=== PATIENT | male | born 1950 | race Caucasian/White ===

== ENCOUNTER 2017-08-06 05:04 | Emergency (ER) | payer MEDICARE ==
[2017-08-06 05:16] VITALS: BP 144/80
[2017-08-06] MEDS ORDERED: BOOSTRIX IM ONE (07:45)
--- NOTE | 2017-08-06 07:47 | Emergency Department Report ---
ED Animal Bite HPI - General Chief Complaint: Animal Bite Stated Complaint: DOG BITE Time Seen by Provider: 08/06/17 07:43 Source: patient Mode of arrival: Ambulatory Limitations: No Limitations - History of Present Illness Initial Comments: Pt was bitten by one of his own dogs while they were fighting, but unsure which one. States one is a puppy and has not had rabies shot yet and the other one has. States not concerned and declines rabies prophylaxis and that dog can be observed. Complaint: animal bite -: Sudden, hour(s) (6) Location: other (L hand) Left: Hand Animal: dog Animal Control Notified: Yes Description: household pet, appeared well Mechanism: bite Pain Description: sharp Context: animals fighting Associated Symptoms: none Treatments Prior to Arrival: wound dressing(s) - Related Data Patient Tetanus UTD: No Previous Rx's Medication Instructions Recorded Last Taken Type Amoxicillin [Amoxicillin TAB] 875 mg PO BID #20 tablet 05/12/15 Unknown Rx Ofloxacin 0.3% [Floxin Otic] 10 ml OT TID #1 bottle 05/12/15 Unknown Rx Amoxicillin/Potassium Clav 1 each PO BID #20 tablet 08/06/17 Unknown Rx [Augmentin 875-125 Tablet] Allergies Allergy/AdvReac Type Severity Reaction Status Date / Time No Known Allergies Allergy Unverified 05/12/15 13:47 ED Review of Systems ROS: Stated complaint: DOG BITE Other details as noted in HPI Comment: All other systems reviewed and negative Constitutional: denies: chills, fever Eyes: denies: eye pain, eye discharge, vision change ENT: denies: ear pain, throat pain Respiratory: denies: cough, shortness of breath, wheezing Cardiovascular: denies: chest pain, palpitations Endocrine: no symptoms reported Gastrointestinal: denies: abdominal pain, nausea, diarrhea Genitourinary: denies: urgency, dysuria Musculoskeletal: denies: back pain, joint swelling, arthralgia Skin: denies: rash, lesions Neurological: denies: headache, weakness, paresthesias Psychiatric: denies: anxiety, depression Hematological/Lymphatic: denies: easy bleeding, easy bruising ED Past Medical Hx - Past Medical History Previous Medical History?: Yes Hx Hypertension: Yes Hx CVA: No Hx Heart Attack/AMI: No Hx Diabetes: No Hx Deep Vein Thrombosis: No Hx Liver Disease: No Hx Renal Disease: No Hx Kidney Stones: No Hx Asthma: Yes - Surgical History Hx Appendectomy: Yes Additional Surgical History: RIGHT ANKLE - Social History Smoking Status: Former Smoker - Medications Home Medications: Home Medications Medication Instructions Recorded Confirmed Last Taken Type Amoxicillin [Amoxicillin TAB] 875 mg PO BID #20 tablet 05/12/15 Unknown Rx Ofloxacin 0.3% [Floxin Otic] 10 ml OT TID #1 bottle 05/12/15 Unknown Rx Amoxicillin/Potassium Clav 1 each PO BID #20 tablet 08/06/17 Unknown Rx [Augmentin 875-125 Tablet] ED Physical Exam - General Limitations: No Limitations General appearance: alert, in no apparent distress - Head Head exam: Present: atraumatic, normocephalic - Eye Eye exam: Present: normal appearance - ENT ENT exam: Present: mucous membranes moist - Neck Neck exam: Present: normal inspection - Respiratory Respiratory exam: Present: normal lung sounds bilaterally. Absent: respiratory distress - Cardiovascular Cardiovascular Exam: Present: regular rate, normal rhythm. Absent: systolic murmur, diastolic murmur, rubs, gallop - GI/Abdominal GI/Abdominal exam: Present: soft, normal bowel sounds - Rectal Rectal exam: Present: deferred - Extremities Exam Extremities exam: Present: normal inspection - Back Exam Back exam: Present: normal inspection - Neurological Exam Neurological exam: Present: alert, oriented X3 - Psychiatric Psychiatric exam: Present: normal affect, normal mood - Skin Skin exam: Present: warm, dry, intact, normal color, other (small puncture wound to proximal L palm. CMS intact. ). Absent: rash ED Course Vital Signs 08/06/17 08/06/17 05:14 05:58 Temperature 97.6 F 97.6 F Pulse Rate 61 60 Respiratory 18 18 Rate Blood Pressure 144/80 144/80 O2 Sat by Pulse 98 98 Oximetry - Reevaluation(s) Reevaluation #1: 08/06/17 07:46 Animal will be observed. Tetanus updated, RX for Augmentin given. Follow with PCP. Pt is in NAD and stable for d/c. 08/06/17 07:46 Critical care attestation.: If time is entered above; I have spent that time in minutes in the direct care of this critically ill patient, excluding procedure time. ED Disposition Clinical Impression: Dog bite Qualifiers: Encounter type: initial encounter Qualified Code(s): W54.0XXA - Bitten by dog, initial encounter Disposition: TO HOME OR SELFCARE Is pt being admited?: No Condition: Good Instructions: Animal Bite (ED) Prescriptions: Amoxicillin/Potassium Clav [Augmentin 875-125 Tablet] 1 each PO BID #20 tablet Referrals: PRIMARY CARE, [Primary Care Provider] - 3-5 Days Time of Disposition: 07:47
== END 2017-08-06 08:20 | disposition home or self-care (01) ==
LOC: ED 05:04
DX: S61.452A Open bite of left hand, initial encounter (principal); I10 Essential (primary) hypertension; Z87.891 Personal history of nicotine dependence; W54.0XXA Bitten by dog, initial encounter; Y93.89 Activity, other specified; Y92.89 Other specified places as the place of occurrence of the external cause; Y99.8 Other external cause status
CPT/HCPCS: 90471; 90715; 99282

== ENCOUNTER 2017-10-24 15:51 | Emergency (ER) | payer MEDICARE ==
[2017-10-24] MEDS ORDERED: AUGMENTIN 875 MG PO ONE (19:54)
[2017-10-24] MEDS ORDERED: TYLENOL PO ONE (19:54)
[2017-10-24] MEDS ORDERED: TRIPLE ANTIBIOTIC TP ONE (20:03)
--- NOTE | 2017-10-24 20:03 | Emergency Department Report ---
ED Animal Bite HPI - General Chief Complaint: Animal Bite Stated Complaint: ANIMAL BITE Time Seen by Provider: 10/24/17 19:53 Source: patient Mode of arrival: Ambulatory Limitations: No Limitations - History of Present Illness Initial Comments: 67-year-old male past medical history none presents with complaint of dog bite to right anterior lateral forearm. Patient states that he has 2 dogs at home that he owns and while playing with them they began to fight he dogs and one of the dogs bit him on right forearm. Patient has 2 small abrasions with one central puncture wound less than 1 cm in size with small scab no active bleeding. States that this occurred this afternoon. Patient states that he was not injured in any other body part. Patient is awake alert and oriented 3 fully lucid nonacute distress. States that he rinsed wound with soap and water immediately after incident. Patient states that he has evidence of dogs have all their vaccinations including vaccinations against rabies and the dogs have veterinary care. Patient states he received a tetanus update 2 months ago. MD Complaint: animal bite -: This afternoon Right: Forearm Animal: dog Animal Control Notified: No Description: household pet Mechanism: bite Severity scale (0 -10): 1 Context: animals fighting Associated Symptoms: none - Related Data Patient Tetanus UTD: Yes Previous Rx's Medication Instructions Recorded Last Taken Type Amoxicillin [Amoxicillin TAB] 875 mg PO BID #20 tablet 05/12/15 Unknown Rx Ofloxacin 0.3% [Floxin Otic] 10 ml OT TID #1 bottle 05/12/15 Unknown Rx Amoxicillin/Potassium Clav 1 each PO BID #20 tablet 08/06/17 Unknown Rx [Augmentin 875-125 Tablet] Acetaminophen [Acetaminophen TAB] 500 mg PO Q6HR PRN #30 tablet 10/24/17 Unknown Rx Amoxicillin/K Clav Tab [Augmentin 1 tab PO Q12HR #20 tab 10/24/17 Unknown Rx 875 mg] Bacitracin Zinc Oint [Antibiotic 1 applicatio TP BID #1 tube 10/24/17 Unknown Rx Oint] Allergies Allergy/AdvReac Type Severity Reaction Status Date / Time No Known Allergies Allergy Unverified 05/12/15 13:47 ED Review of Systems ROS: Stated complaint: ANIMAL BITE Other details as noted in HPI Constitutional: denies: chills, fever Eyes: denies: eye pain, eye discharge, vision change ENT: denies: ear pain, throat pain Respiratory: denies: cough, shortness of breath, wheezing Cardiovascular: denies: chest pain, palpitations Endocrine: no symptoms reported Gastrointestinal: denies: abdominal pain, nausea, diarrhea Genitourinary: denies: urgency, dysuria Musculoskeletal: denies: back pain, joint swelling, arthralgia Skin: denies: rash, lesions Neurological: denies: headache, weakness, paresthesias Psychiatric: denies: anxiety, depression Hematological/Lymphatic: denies: easy bleeding, easy bruising ED Past Medical Hx - Past Medical History Hx Hypertension: Yes Hx CVA: No Hx Heart Attack/AMI: No Hx Diabetes: No Hx Deep Vein Thrombosis: No Hx Liver Disease: No Hx Renal Disease: No Hx Kidney Stones: No Hx Asthma: Yes - Surgical History Hx Appendectomy: Yes Additional Surgical History: RIGHT ANKLE - Social History Smoking Status: Never Smoker Substance Use Type: None - Medications Home Medications: Home Medications Medication Instructions Recorded Confirmed Last Taken Type Amoxicillin [Amoxicillin TAB] 875 mg PO BID #20 tablet 05/12/15 Unknown Rx Ofloxacin 0.3% [Floxin Otic] 10 ml OT TID #1 bottle 05/12/15 Unknown Rx Amoxicillin/Potassium Clav 1 each PO BID #20 tablet 08/06/17 Unknown Rx [Augmentin 875-125 Tablet] Acetaminophen [Acetaminophen TAB] 500 mg PO Q6HR PRN #30 tablet 10/24/17 Unknown Rx Amoxicillin/K Clav Tab [Augmentin 1 tab PO Q12HR #20 tab 10/24/17 Unknown Rx 875 mg] Bacitracin Zinc Oint [Antibiotic 1 applicatio TP BID #1 tube 10/24/17 Unknown Rx Oint] ED Physical Exam - General Limitations: No Limitations General appearance: alert, in no apparent distress - Head Head exam: Present: atraumatic, normocephalic - Eye Eye exam: Present: normal appearance, PERRL, EOMI - ENT ENT exam: Present: mucous membranes moist - Neck Neck exam: Present: normal inspection, full ROM - Respiratory Respiratory exam: Present: normal lung sounds bilaterally. Absent: respiratory distress - Cardiovascular Cardiovascular Exam: Present: regular rate, normal rhythm. Absent: systolic murmur, diastolic murmur, rubs, gallop - GI/Abdominal GI/Abdominal exam: Present: soft, normal bowel sounds - Rectal Rectal exam: Present: deferred - Extremities Exam Extremities exam: Present: normal inspection - Expanded Upper Extremity Exam Right General: Present: other Shoulder Exam: Present: normal inspection, full ROM Upper Arm exam: Present: normal inspection, full ROM Elbow exam: Present: normal inspection, full ROM Forearm Wrist exam: Present: tenderness, abrasion, other (puncture wound) Hand Wrist exam: Present: normal inspection, full ROM Neuro motor exam: Present: wrist extension intact, thumb opposition intact, thumb IP flexion intact, thumb adduction intact, fingers 2-5 abduction intact Vascular: Present: normal capillary refill - Back Exam Back exam: Present: normal inspection - Neurological Exam Neurological exam: Present: alert, oriented X3, CN II-XII intact, normal gait - Psychiatric Psychiatric exam: Present: normal affect, normal mood - Skin Skin exam: Present: warm, dry, intact, normal color. Absent: rash ED Course Vital Signs 10/24/17 10/24/17 16:18 16:23 Temperature 97.8 F 97.8 F Pulse Rate 62 62 Respiratory 16 16 Rate Blood Pressure 144/83 Blood Pressure 144/83 [Right] O2 Sat by Pulse 98 98 Oximetry Critical care attestation.: If time is entered above; I have spent that time in minutes in the direct care of this critically ill patient, excluding procedure time. Critical Care Time: A/P: Dog bite to right forearm 1-Augmentin 875 twice a day for 10 days and Tylenol when necessary, topical bacitracin 2-2 less than 0.5cm abrasions, less than 1cm small puncture wound and no active bleeding no indication for closure at this time and less than 1 cm in size and depth. Has external skin no exposed tissue. No indication for rabies prophylaxis at this time. He states he has documentation that his pet has all of its vaccinations. Distal pulses and range of motion right upper extremity fully intact on clinical exam. No abscess no overt signs of cellulitis. 3-patient had his tetanus updated 2 months ago via primary care doctor 4-I advised patient to return to the ED for any pus drainage from wound or erythema at site. Patient has no clinical signs of infection at this time ED Disposition Clinical Impression: Abrasion Animal bite of right forearm Qualifiers: Encounter type: initial encounter Qualified Code(s): S51.851A - Open bite of right forearm, initial encounter Disposition: DC-01 TO HOME OR SELFCARE Is pt being admited?: No Does the pt Need Aspirin: No Condition: Stable Instructions: Animal Bite (ED), Acute Wound Care (ED), Abrasion (ED) Prescriptions: Acetaminophen [Acetaminophen TAB] 500 mg PO Q6HR PRN #30 tablet PRN Reason: Pain , Severe (7-10) Amoxicillin/K Clav Tab [Augmentin 875 mg] 1 tab PO Q12HR #20 tab Bacitracin Zinc Oint [Antibiotic Oint] 1 applicatio TP BID #1 tube Referrals: [facility] [Outside] - 3-5 Days [facility] [Outside] - 3-5 Days Time of Disposition: 20:07
[2017-10-24 21:45] VITALS: BP 119/56
== END 2017-10-24 20:30 | disposition home or self-care (01) ==
LOC: ED 15:51
DX: S51.851A Open bite of right forearm, initial encounter (principal); I10 Essential (primary) hypertension; J45.909 Unspecified asthma, uncomplicated; Z90.49 Acquired absence of other specified parts of digestive tract; W54.0XXA Bitten by dog, initial encounter; Y93.89 Activity, other specified; Y99.8 Other external cause status; Y92.009 Unspecified place in unspecified non-institutional (private) residence as the place of occurrence of the external cause
CPT/HCPCS: 99282; A6250

== ENCOUNTER 2018-12-19 14:46 | Inpatient (IN) | payer MEDICARE ==
[2018-12-19] MEDS ORDERED: NACL 0.9% 1000 ML 1,000 ML ONE (15:28)
[2018-12-19 15:41] LABS: Basophils % (Auto) 0.4 % (0.0-1.8); Eosinophils % (Auto) 0.1 % (0.0-4.3); Hemoglobin 13.3 gm/dl (11.8-15.2); Lymphocytes # (Auto) 0.7 K/mm3 (1.2-5.4); Lymphocytes % (Auto) 6.3 % (13.4-35.0); Mean Corpuscular HGB Conc 32 % (32-34); Mean Corpuscular Volume 78 fl (84-94); Monocytes # (Auto) 0.6 K/mm3 (0.0-0.8); Monocytes % (Auto) 5.3 % (0.0-7.3); Platelet Count 266 K/mm3 (140-440); Red Blood Count 5.38 M/mm3 (3.65-5.03)
[2018-12-19] MEDS ORDERED: TYLENOL PO ONE (15:45)
[2018-12-19] MEDS ORDERED: TORADOL IV ONE (15:45)
[2018-12-19] MEDS ORDERED: ZOFRAN IV ONE (15:46)
--- NOTE | 2018-12-19 15:50 | Emergency Department Report ---
ED General Adult HPI - General Chief complaint: Fever Stated complaint: FEVER/VOMITING/SOB Time Seen by Provider: 12/19/18 15:02 Source: patient, family Mode of arrival: Ambulatory Limitations: Language Barrier - History of Present Illness Initial comments: 68-year-old male with a past medical history of asthma, colon cancer (finished chemotherapy in October 2018), hypertension, previous appendectomy, and pacemaker placement presents to the hospital complaining of fever and chills that started 2 hours prior to arrival. Patient does complain of frontal headache. Patient states he did receive his flu shot. He denies cough, chest pain, shortness of breath, abdominal pain, dysuria, or sore throat. He does complain of some nausea without vomiting. 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 Severity scale (0 -10): 0 - Related Data Previous Rx's Medication Instructions Recorded Last Taken Type Amoxicillin [Amoxicillin TAB] 875 mg PO BID #20 tablet 05/12/15 Unknown Rx Ofloxacin 0.3% [Floxin Otic] 10 ml OT TID #1 bottle 05/12/15 Unknown Rx Amoxicillin/Potassium Clav 1 each PO BID #20 tablet 08/06/17 Unknown Rx [Augmentin 875-125 Tablet] Acetaminophen [Acetaminophen TAB] 500 mg PO Q6HR PRN #30 tablet 10/24/17 Unknown Rx Amoxicillin/K Clav Tab [Augmentin 1 tab PO Q12HR #20 tab 10/24/17 Unknown Rx 875 mg] Bacitracin Zinc Oint [Antibiotic 1 applicatio TP BID #1 tube 10/24/17 Unknown Rx Oint] Allergies Allergy/AdvReac Type Severity Reaction Status Date / Time No Known Allergies Allergy Verified 12/19/18 14:48 ED Review of Systems ROS: Stated complaint: FEVER/VOMITING/SOB Other details as noted in HPI Comment: All other systems reviewed and negative ED Past Medical Hx - Past Medical History Hx Hypertension: Yes Hx CVA: No Hx Heart Attack/AMI: No Hx Diabetes: No Hx Deep Vein Thrombosis: No Hx Liver Disease: No Hx Renal Disease: No Hx of Cancer: Yes Hx Kidney Stones: No Hx Asthma: Yes Additional medical history: FINISHED CHEMO IN OCT - Surgical History Hx Appendectomy: Yes Additional Surgical History: RIGHT ANKLE - Social History Smoking Status: Never Smoker - Medications Home Medications: Home Medications Medication Instructions Recorded Confirmed Last Taken Type Amoxicillin [Amoxicillin TAB] 875 mg PO BID #20 tablet 05/12/15 Unknown Rx Ofloxacin 0.3% [Floxin Otic] 10 ml OT TID #1 bottle 05/12/15 Unknown Rx Amoxicillin/Potassium Clav 1 each PO BID #20 tablet 08/06/17 Unknown Rx [Augmentin 875-125 Tablet] Acetaminophen [Acetaminophen TAB] 500 mg PO Q6HR PRN #30 tablet 10/24/17 Unknown Rx Amoxicillin/K Clav Tab [Augmentin 1 tab PO Q12HR #20 tab 10/24/17 Unknown Rx 875 mg] Bacitracin Zinc Oint [Antibiotic 1 applicatio TP BID #1 tube 10/24/17 Unknown Rx Oint] ED Physical Exam - General Limitations: Language Barrier - Other Other exam information: General: No limitations, patient is alert in no acute distress Head exam: Atraumatic, normocephalic Eyes exam: Normal appearance, pupils equal reactive to light, extraocular movements intact ENT: Moist mucous membrane Neck exam: Normal inspection, full range of motion, no meningismus nontender Respiratory exam: Clear to auscultation bilateral, no wheezes, rales, crackles Cardiovascular: Normal rate and rhythm, pacemaker to left chest wall Abdomen: Soft, nondistended, and nontender, with normal bowel sounds, no rebound, or guarding Extremity: Full range of motion normal inspection no deformity Back: Normal Inspection, full range of motion, no tenderness Neurologic: Alert, oriented x3, cranial nerves intact, no motor or sensory deficit Psychiatric: normal affect, normal mood Skin: Warm, dry, intact ED Course Vital Signs 12/19/18 12/19/18 12/19/18 15:00 15:22 15:30 Temperature 101.8 F H 100.7 F H Pulse Rate 66 110 H 111 H Respiratory 26 H 12 16 Rate Blood Pressure 105/64 Blood Pressure 115/52 [Left] O2 Sat by Pulse 96 93 Oximetry 12/19/18 12/19/18 12/19/18 16:00 16:30 17:30 Temperature Pulse Rate 108 H 103 H 92 H Respiratory 23 22 26 H Rate Blood Pressure 108/67 100/55 89/55 Blood Pressure [Left] O2 Sat by Pulse 94 92 93 Oximetry 12/19/18 18:21 Temperature Pulse Rate 87 Respiratory 16 Rate Blood Pressure Blood Pressure 94/53 [Left] O2 Sat by Pulse 95 Oximetry ED Medical Decision Making - Lab Data Result diagrams: 12/19/18 15:10 12/19/18 15:10 Lab Results 12/19/18 12/19/18 12/19/18 Range/Units 15:10 15:10 15:10 WBC 11.1 H (4.5-11.0) K/mm3 RBC 5.38 H (3.65-5.03) M/mm3 Hgb 13.3 (11.8-15.2) gm/dl Hct 42.0 (35.5-45.6) % MCV 78 L (84-94) fl MCH 25 L (28-32) pg MCHC 32 (32-34) % RDW 17.0 H (13.2-15.2) % Plt Count 266 (140-440) K/mm3 Lymph % (Auto) 6.3 L (13.4-35.0) % [place] % (Auto) 5.3 (0.0-7.3) % Eos % (Auto) 0.1 (0.0-4.3) % Baso % (Auto) 0.4 (0.0-1.8) % Lymph # 0.7 L (1.2-5.4) K/mm3 [place] # 0.6 (0.0-0.8) K/mm3 Eos # 0.0 (0.0-0.4) K/mm3 Baso # 0.0 (0.0-0.1) K/mm3 Seg Neutrophils % 87.9 H (40.0-70.0) % Seg Neutrophils # 9.7 H (1.8-7.7) K/mm3 APTT 26.3 (24.2-36.6) Sec. Sodium 139 (137-145) mmol/L Potassium 3.8 (3.6-5.0) mmol/L Chloride 101.9 (98-107) mmol/L Carbon Dioxide 20 L (22-30) mmol/L Anion Gap 21 mmol/L BUN 17 (9-20) mg/dL Creatinine 1.1 (0.8-1.5) mg/dL Estimated GFR > 60 ml/min BUN/Creatinine Ratio 15 % Glucose 138 H (75-100) mg/dL Lactic Acid (0.7-2.0) mmol/L Calcium 9.5 (8.4-10.2) mg/dL Total Bilirubin 0.90 (0.1-1.2) mg/dL AST 24 (5-40) units/L ALT 10 (7-56) units/L Alkaline Phosphatase 56 (35-129) units/L Total Creatine Kinase 288 H (55-170) units/L Troponin T < 0.010 (0.00-0.029) ng/mL Total Protein 7.5 (6.3-8.2) g/dL Albumin 4.0 (3.9-5) g/dL Albumin/Globulin Ratio 1.1 % Influenza A (Rapid) (Negative) Influenza B (Rapid) (Negative) 12/19/18 12/19/18 12/19/18 Range/Units 15:10 15:44 16:01 WBC (4.5-11.0) K/mm3 RBC (3.65-5.03) M/mm3 Hgb (11.8-15.2) gm/dl Hct (35.5-45.6) % MCV (84-94) fl MCH (28-32) pg MCHC (32-34) % RDW (13.2-15.2) % Plt Count (140-440) K/mm3 Lymph % (Auto) (13.4-35.0) % [place] % (Auto) (0.0-7.3) % Eos % (Auto) (0.0-4.3) % Baso % (Auto) (0.0-1.8) % Lymph # (1.2-5.4) K/mm3 [place] # (0.0-0.8) K/mm3 Eos # (0.0-0.4) K/mm3 Baso # (0.0-0.1) K/mm3 Seg Neutrophils % (40.0-70.0) % Seg Neutrophils # (1.8-7.7) K/mm3 APTT (24.2-36.6) Sec. Sodium (137-145) mmol/L Potassium (3.6-5.0) mmol/L Chloride (98-107) mmol/L Carbon Dioxide (22-30) mmol/L Anion Gap mmol/L BUN (9-20) mg/dL Creatinine (0.8-1.5) mg/dL Estimated GFR ml/min BUN/Creatinine Ratio % Glucose (75-100) mg/dL Lactic Acid 3.40 H* 3.00 H* (0.7-2.0) mmol/L Calcium (8.4-10.2) mg/dL Total Bilirubin (0.1-1.2) mg/dL AST (5-40) units/L ALT (7-56) units/L Alkaline Phosphatase (35-129) units/L Total Creatine Kinase (55-170) units/L Troponin T (0.00-0.029) ng/mL Total Protein (6.3-8.2) g/dL Albumin (3.9-5) g/dL Albumin/Globulin Ratio % Influenza A (Rapid) Negative (Negative) Influenza B (Rapid) Negative (Negative) - EKG Data -: EKG Interpreted by Me (a sensed, v paced, no stemi) EKG shows normal: axis (qrs -38), QRS complexes (qrsd 175) - EKG Data When compared to previous EKG there are: previous EKG unavailable - Radiology Data Radiology results: report reviewed PROCEDURE: XR CHEST 1V AP TECHNIQUE: Frontal portable view of the chest HISTORY: fever COMPARISONS: None FINDINGS: There appear to be patchy areas of pulmonary consolidation in the right midlung field and lung bases bilaterally. There is no evidence of pneumothorax. There is possible small right pleural fluid collection. The cardiac silhouette is enlarged with dual-lead AICD. The thoracic aorta is tortuous. There is prominence of the pulmonary venous vasculature suggestive of pulmonary venous congestion. There is prominence of the hilum bilaterally. The bony structures are unremarkable. Visualization of detail of the thoracic spine is limited. IMPRESSION: 1. Appearance areas of pulmonary consolidation in the right midlung field and lung bases bilaterally. Infectious and noninfectious etiologies need to be considered. 2. Possible small right pleural fluid collection. 3. Enlarged cardiac silhouette with dual-lead AICD and evidence of pulmonary venous congestion. 4. Prominence of the jenny bilaterally. This may represent prominent vascular structures. However, adenopathy cannot entirely be excluded. Comparison with previous chest x-ray or CT chest would be helpful for further evaluation. - Medical Decision Making fever ?pneumonia based on read, no cough reported rocephin and azithromycin after 1 L of NS sbp 80's, addition NS ordered (30ml/kg bolus) chf status unknown elevated lactic acid pt will be admitted for further tx - Differential Diagnosis viral syndrome, influenza, pneumonia, UTI Critical Care Time: No Critical care attestation.: If time is entered above; I have spent that time in minutes in the direct care o f this critically ill patient, excluding procedure time. ED Disposition Clinical Impression: Pneumonia, Fever, Sepsis, AICD (automatic cardioverter/defibrillator) present Disposition: 09 OP ADMIT IP TO THIS HOSP Is pt being admited?: Yes Condition: Stable Time of Disposition: 18:08 (Dr Yousif/hsop)
[2018-12-19 15:53] LABS: Alanine Aminotransferase 10 units/L (7-56); BUN/Creatinine Ratio 15; Blood Urea Nitrogen 17 mg/dL (9-20); Calcium 9.5 mg/dL (8.4-10.2); Hemolysis Index 59
--- NOTE | 2018-12-19 16:36 | XRay Report ---
PROCEDURE: XR CHEST 1V AP TECHNIQUE: Frontal portable view of the chest HISTORY: fever COMPARISONS: None FINDINGS: There appear to be patchy areas of pulmonary consolidation in the right midlung field and lung bases bilaterally. There is no evidence of pneumothorax. There is possible small right pleural fluid collection. The cardiac silhouette is enlarged with dual- lead AICD. The thoracic aorta is tortuous. There is prominence of the pulmonary venous vasculature suggestive of pulmonary venous congestion. There is prominence of the hilum bilaterally. The bony structures are unremarkable. Visualization of detail of the thoracic spine is limited. IMPRESSION: 1. Appearance areas of pulmonary consolidation in the right midlung field and lung bases bilaterally. Infectious and noninfectious etiologies need to be considered. 2. Possible small right pleural fluid collection. 3. Enlarged cardiac silhouette with dual-lead AICD and evidence of pulmonary venous congestion. 4. Prominence of the jenny bilaterally. This may represent prominent vascular structures. However, amarjit nopathy cannot entirely be excluded. Comparison with previous chest x-ray or CT chest would be helpful for further evaluation. This document is electronically signed by Lillie Schumacher MD., December 19 2018 04:34:24 PM ET
[2018-12-19] MEDS ORDERED: NACL 0.9% 1000 ML 1,000 ML IV ONE (16:54)
[2018-12-19] MEDS ORDERED: ROCEPHIN/NS 1 GM/50 ML 1 GM/50 ML BAG IV ONE (17:31)
[2018-12-19] MEDS ORDERED: ZITHROMAX 500 MG in NACL 0.9% 250ML 250 ML IV ONE (17:31)
[2018-12-19 17:54] LABS: Bilirubin,Urine NEG (Negative); Blood,Urine SM (Negative); Color,Urine Yellow (Yellow); Mucus,Urine 1+ /HPF; Urobilinogen,Urine < 2.0 mg/dL (<2.0)
[2018-12-19] MEDS ORDERED: ZITHROMAX PO ONE (18:00)
[2018-12-19] MEDS ORDERED: NACL 0.9% 1000 ML IV ONE (18:05)
[2018-12-19] MEDS ORDERED: DUONEB *Not for PRN Use IH SCH (20:59)
[2018-12-19] MEDS ORDERED: DUONEB *Not for PRN Use IH ONE (21:00)
[2018-12-20] MEDS ORDERED: SODIUM CHLORIDE FLUSH SYRINGE 10 ML IV PRN (02:58)
[2018-12-20] MEDS ORDERED: TYLENOL PO PRN (02:58)
[2018-12-20] MEDS ORDERED: ZOFRAN IV PRN (02:58)
[2018-12-20] MEDS ORDERED: PERCOCET 5/325 PO PRN (03:02)
[2018-12-20] MEDS ORDERED: DILAUDID IV PRN (03:02)
[2018-12-20] MEDS: NACL 0.9% 1000 ML 1,000 ML IV SCH ×2 (03:33→13:15)
--- NOTE | 2018-12-20 03:58 | Event Note ---
Date: 12/19/18 See History and physical in reports [facility] Pneumonia SIRS
--- NOTE | 2018-12-20 05:35 | History and Physical Report ---
CHIEF COMPLAINT: Fever, chills, and vomiting for the last 3 hours prior to arrival. HISTORY OF PRESENT ILLNESS: A 68-year-old male with history of colon cancer, on chemotherapy till 10/2018 and asthma, comes in for fever, chills, and vomiting x 1 over the last 3 hours. The patient is also short of breath. Sudden onset. No cough present. Just fever and chills. He finished his chemotherapy for colon cancer in 10/2018. No exertional dyspnea. PAST MEDICAL HISTORY: Significant for asthma and colon cancer. No coronary artery disease, no diabetes, no hypertension. PAST SURGICAL HISTORY: Right ankle surgery. SOCIAL HISTORY: Does not smoke. FAMILY HISTORY: No significant family history. REVIEW OF SYSTEMS: Significant for fever, chills, and nausea including vomiting x 1 and also shortness of breath. Otherwise, review of systems negative. PHYSICAL EXAMINATION: GENERAL: Elderly male, cooperative during examination. VITAL SIGNS: Initial blood pressure was 96/54 and temperature was 101.8, pulse is 100, respiratory rate is 26. HEENT: Unremarkable. Pupils are equal and reactive. NECK: Supple, no lymphadenopathy, no thyromegaly. LUNGS: Scattered rhonchi bilaterally. Scattered rales in the right interscapular region. CARDIOVASCULAR: S1, S2 heard. No gallop, no murmur, no rub. Apical impulse in the left fifth intercostal space and midclavicular line. ABDOMEN: Soft and benign. No hepatosplenomegaly. No guarding, no rigidity. Hernial orifices are normal. EXTREMITIES: Good pedal pulses. No pedal edema. CENTRAL NERVOUS SYSTEM: Alert and oriented x 4. Nonfocal exam. SKIN: Normal. IMAGING AND LAB STUDIES: Chest x-ray shows pulmonary consolidation in the right mid lung field and lung bases bilaterally. Infectious and noninfectious etiologies need to be considered. Also, possible small right pleural fluid collection. Also, enlarged cardiac silhouette with dual lead AICD and evidence of pulmonary venous congestion. Prominence of the jenny bilaterally. This may represent prominent vascular structures; however, adenopathy cannot entirely be excluded. Comparison with previous chest x-ray or CT chest would be helpful for further evaluation. LABORATORY DATA: Significant for white count of 11,100, H and H is 13.3 and 42.0. Sodium is 139, potassium is 3.8, chloride is 102, bicarb is 20. BUN and creatinine 17 and 1.1. Glucose is 138. Lactic acid is high at 3.4. Total CK is 288. Urine was normal. Influenza titers are negative. ASSESSMENT AND PLAN: 1. Right mid lobe and lower lobe pneumonia. The patient initiated on ceftriaxone and azithromycin. Also, DuoNeb because of history of asthma and low-dose Solu-Medrol. 2. Asthma. Continue DuoNeb and Solu-Medrol and antibiotics. 3. Systemic inflammatory response syndrome. The patient qualifies for systemic inflammatory response syndrome. Lactic acid is 3.4 and WBC is 11.1. We will treat with antibiotics and IV fluids for the time being. 4. Congestive heart failure, Lasix 40 mg once a day. 5. Deep venous thrombosis prophylaxis with Lovenox 40 mg subcutaneous daily and GI prophylaxis. In summary, the patient has right middle lobe and right lower lobe pneumonia. Antibiotics ordered. CT chest also ordered for better delineation of the mediastinum. 6. History of colon cancer treated with chemo till 10/2018. JOB# [id number] VSM/NTS
[2018-12-20] MEDS: DUONEB *Not for PRN Use IH SCH ×4 (07:16→20:20)
--- NOTE | 2018-12-20 09:47 | Cat Scan Report ---
CT CHEST WITH CONTRAST INDICATION: Hilar adenopathy. COMPARISON: Yesterday's CXR and 10/06/[address] images. FINDINGS: Chest CT performed following intravenous administration of 100 cc of Omnipaque 300. Mild cardiomegaly. No effusions or size significant adenopathy. Main pulmonary artery transverse caliber of 3.1 cm with the right main pulmonary artery measuring 2.7 cm while the left pulmonary artery is 2.3 cm. No focal suspicious filling defects, to the extent assessed. No aortic aneurysm or dissection. Slight aortic arch atherosclerotic calcifications. Patent central airway. Normal size thyroid with approximately 1 cm hypodensity on the left, axial image 10, series 2. Stable 6 mm left infrahilar calcification just beneath the left pulmonary vein, axial image 73, series 2. Slight increased AP chest diameter. Minimal bibasilar scarring including a stable 0.6 cm left lower lobe calcification on axial image 91. Small left distal paraesophageal lymph node again present, now measuring 1.7 x 0.7 cm, axial image 94, series 2, previously 1.2 x 0.6 cm. Right hemidiaphragm again approximately 2.5 cm higher than the left. Slight nonspecific distal esophageal prominence/thickening. Faint hyperdense heterogeneity towards the gallbladder fundus as on axial images 114-128, not excluded for partially imaged cholelithiasis, somewhat similar to prior CT appearance. New left upper chest wall AICD with dual-chamber leads create some streak artifact. Mild multilevel spinal degenerative spurring. CONCLUSION: No acute chest CT abnormality or lymphadenopathy with various other findings as at the imaged lung bases and included upper abdomen, including cholelithiasis and mild cardiomegaly, amongst others, as described. Thank you for the opportunity to participate in this patient's care.
[2018-12-20] MEDS: SODIUM CHLORIDE FLUSH SYRINGE 10 ML IV SCH ×2 (10:08→22:15)
[2018-12-20] MEDS: ROCEPHIN/NS 2 GM/100 ML 2 GM/100 ML BAG IV SCH (10:09)
[2018-12-20] MEDS: PEPCID PO SCH ×2 (10:14→22:14)
--- NOTE | 2018-12-20 10:33 | Consultation ---
History of Present Illness Consult date: 12/20/18 Requesting physician: SHREE GARVIN Reason for consult: pneumonia History of present illness: 68-year-old male with a past medical history of asthma, colon cancer (finished chemotherapy in October 2018), hypertension, previous appendectomy, and pacemaker placement presents to the hospital complaining of fever and chills that started 2 hours prior to arrival. Patient does complain of frontal headache. Patient states he did receive his flu shot. He denies cough, chest pain, shortness of breath, abdominal pain, dysuria, or sore throat. He does complain of some nausea without vomiting. Patient was admitted to the hospitalist service and I have been consulted for RML Pneumonia Patient was seen and examined. Vitals, labs, medications, chart and imaging were reviewed. He states he still has some chills and a fever. He denies any vomiting at this time. No cough ROS: Stated complaint: FEVER/VOMITING/SOB Other details as noted in HPI Comment: 10 point systems reviewed and negative - Past Medical History Hx Hypertension: Yes Hx CVA: No Hx Heart Attack/AMI: No Hx Diabetes: No Hx Deep Vein Thrombosis: No Hx Liver Disease: No Hx Renal Disease: No Hx of Cancer: Yes Hx Kidney Stones: No Hx Asthma: Yes Additional medical history: FINISHED CHEMO IN OCT - Surgical History Hx Appendectomy: Yes Additional Surgical History: RIGHT ANKLE - Social History Smoking Status: Never Smoker Medications and Allergies Allergies Allergy/AdvReac Type Severity Reaction Status Date / Time No Known Allergies Allergy Verified 12/19/18 14:48 Home Medications Medication Instructions Recorded Confirmed Last Taken Type Ofloxacin 0.3% [Floxin Otic] 10 ml OT TID #1 bottle 05/12/15 Unknown Rx Acetaminophen [Acetaminophen TAB] 500 mg PO Q6HR PRN #30 tablet 10/24/17 Unknown Rx Bacitracin Zinc Oint [Antibiotic 1 applicatio TP BID #1 tube 10/24/17 Unknown Rx Oint] Azithromycin 250 mg PO DAILY #3 tablet 12/21/18 Unknown Rx cephALEXin [Keflex] 500 mg PO Q6HR #20 capsule 12/21/18 Unknown Rx Active Meds: Active Medications Acetaminophen (Tylenol) 650 mg PO Q4H PRN PRN Reason: Pain MILD(1-3)/Fever >100.5/MURPHY Albuterol/Ipratropium (Duoneb *Not For Prn Use*) 1 ampul IH QIDRT [facility] Last Admin: 12/20/18 07:16 Dose: 1 ampul Documented by: Enoxaparin Sodium (Lovenox) 40 mg SUB-Q QDAY@2200 [facility] Famotidine (Pepcid) 20 mg PO BID [facility] Last Admin: 12/20/18 10:14 Dose: 20 mg Documented by: Hydromorphone HCl (Dilaudid) 0.5 mg IV Q3H PRN PRN Reason: Pain , Severe (7-10) Sodium Chloride (Nacl 0.9% 1000 Ml) 1,000 mls @ 100 mls/hr IV DIRECT LAURIE Stop: 12/20/18 15:00 Last Admin: 12/20/18 03:33 Dose: 100 mls/hr Documented by: Azithromycin 500 mg/ Sodium (Chloride) 250 mls @ 250 mls/hr IV Q24HR [facility] Ceftriaxone Sodium (Rocephin/Ns 2 Gm/100 Ml) 2 gm in 100 mls @ 200 mls/hr IV Q24HR [facility]; Protocol Last Admin: 12/20/18 10:09 Dose: 200 mls/hr Documented by: Methylprednisolone Sodium Succinate (Solu-Medrol) 40 mg IV Q8HR [facility] Ondansetron HCl (Zofran) 4 mg IV Q8H PRN PRN Reason: Nausea And Vomiting Oxycodone/Acetaminophen (Percocet 5/325) 1 tab PO Q6H PRN PRN Reason: Pain, Moderate (4-6) Sodium Chloride (Sodium Chloride Flush Syringe 10 Ml) 10 ml IV BID [facility] Sodium Chloride (Sodium Chloride Flush Syringe 10 Ml) 10 ml IV PRN PRN PRN Reason: LINE FLUSH Physical Examination Vital signs: Vital Signs Temp Pulse Resp BP Pulse Ox 101.8 F H 66 26 H 115/52 96 12/19/18 15:00 12/19/18 15:00 12/19/18 15:00 12/19/18 15:00 12/19/18 15:00 General appearance: no acute distress, other (Lying quietly in bed on 2L oxygen) Eyes: non-icteric ENT: oropharynx moist Neck: supple, no lymphadenopathy, no JVD Effort: normal Ascultation: Bilateral: clear, diminished breath sounds Cardiovascular: regular rate and rhythm, other (S1,S2, chest wall device) Gastrointestinal: normoactive bowel sounds, soft, non-tender (no hepato- splenomegaly), non-distended Integumentary: normal Extremities: no cyanosis, no edema, pink and warm, pulses normal Musculoskeletal: no deformities normal mental status, non-focal exam, pupils equal and round, motor strength normal and mood appropriate, affect normal Results - Laboratory Findings CBC and BMP: 12/21/18 04:33 12/21/18 04:33 Abnormal lab findings: Abnormal Labs 12/19/18 12/19/18 12/19/18 15:10 15:10 15:10 WBC 11.1 H RBC 5.38 H MCV 78 L MCH 25 L RDW 17.0 H Lymph % (Auto) 6.3 L Lymph # 0.7 L Seg Neutrophils % 87.9 H Seg Neutrophils # 9.7 H Carbon Dioxide 20 L Glucose 138 H Lactic Acid 3.40 H* Total Creatine Kinase 288 H 12/19/18 12/19/18 16:01 17:07 WBC RBC MCV MCH RDW Lymph % (Auto) Lymph # Seg Neutrophils % Seg Neutrophils # Carbon Dioxide Glucose Lactic Acid 3.00 H* 2.20 H* Total Creatine Kinase - Diagnostic Findings Chest x-ray: image reviewed (lung infiltrat, with blunting of right costophrenic angle, prominant pulmonary vasculature) CT scan - chest: report reviewed, image reviewed Assessment and Plan Right lung infiltrate/RML PNA Fevers Leukocytosis h/o Colon cancer s/p chemotherapy s/p AICD -Wean of supplemental oxygen, get room air ABG -Symptom management -Follow CBC -VTE prophylaxis -Chronic home medications -Anti-emetics -Get procalcitonin levels, currently on empiric antibiotics -Incentive spirometry -Get BNP -If he continues to show clinical improvement in the next 24 hours early discharge planning with close outpatient follow up. Patient just completed chemotherapy and needs to be watched closely. Thank you for the consult. Will follow.
[2018-12-20] MEDS: SOLU-Medrol IV SCH ×3 (13:11→22:14)
--- NOTE | 2018-12-20 13:57 | Progress Note ---
Assessment and Plan - Patient Problems (1) AICD (automatic cardioverter/defibrillator) present Current Visit: Yes Status: Chronic (2) Fever Current Visit: Yes Status: Acute Plan to address problem: Likely due to pneumonia Patient is on IV antibiotics (3) Pneumonia Current Visit: Yes Status: Acute Qualifiers: Laterality: bilateral Plan to address problem: Patient is on IV antibiotic (4) Sepsis Current Visit: Yes Status: Acute Plan to address problem: Follow the cultures IV antibiotics and IV fluids History Interval history: Patient was seen and evaluated this morning, patient was not in cardio pulmonary distress. Hospitalist Physical - Physical exam Narrative exam: Not in cardiopulmonary distress. The patient appeared well nourished and normally developed. Vital signs as documented. Head exam is unremarkable. No scleral icterus . Neck is without jugular venous distension, thyromegaly, or carotid bruits. Lungs are clear to auscultation. Cardiac exam reveals regular rate and Rhythm. First and second heart sounds normal. No murmurs, rubs or gallops. Abdominal exam reveals normal bowel sounds, no masses, no organomegaly and no aortic enlargement. Extremities are nonedematous and both femoral and pedal pulses are normal. B2B SALES REPRESENTATIVE: Alert and oriented 3. No focal weakness. - Constitutional Vitals: Temp Pulse Resp BP Pulse Ox 99.3 F 88 22 148/89 98 12/20/18 09:45 12/20/18 09:46 12/20/18 09:46 12/20/18 09:46 12/20/18 09:46 Results - Labs CBC & Chem 7: 12/19/18 15:10 12/19/18 15:10 Labs: Laboratory Last Values WBC 11.1 K/mm3 (4.5-11.0) H 12/19/18 15:10 RBC 5.38 M/mm3 (3.65-5.03) H 12/19/18 15:10 Hgb 13.3 gm/dl (11.8-15.2) 12/19/18 15:10 Hct 42.0 % (35.5-45.6) 12/19/18 15:10 MCV 78 fl (84-94) L 12/19/18 15:10 MCH 25 pg (28-32) L 12/19/18 15:10 MCHC 32 % (32-34) 12/19/18 15:10 RDW 17.0 % (13.2-15.2) H 12/19/18 15:10 Plt Count 266 K/mm3 (140-440) 12/19/18 15:10 Lymph % (Auto) 6.3 % (13.4-35.0) L 12/19/18 15:10 [place] % (Auto) 5.3 % (0.0-7.3) 12/19/18 15:10 Eos % (Auto) 0.1 % (0.0-4.3) 12/19/18 15:10 Baso % (Auto) 0.4 % (0.0-1.8) 12/19/18 15:10 Lymph # 0.7 K/mm3 (1.2-5.4) L 12/19/18 15:10 [place] # 0.6 K/mm3 (0.0-0.8) 12/19/18 15:10 Eos # 0.0 K/mm3 (0.0-0.4) 12/19/18 15:10 Baso # 0.0 K/mm3 (0.0-0.1) 12/19/18 15:10 Seg Neutrophils % 87.9 % (40.0-70.0) H 12/19/18 15:10 Seg Neutrophils # 9.7 K/mm3 (1.8-7.7) H 12/19/18 15:10 APTT 26.3 Sec. (24.2-36.6) 12/19/18 15:10 POC ABG pH 7.361 (7.35-7.45) 12/20/18 13:37 POC ABG pCO2 34.1 (35-45) L 12/20/18 13:37 POC ABG pO2 78 (80-105) L 12/20/18 13:37 POC ABG HCO3 19.3 (22-26 mml/L) 12/20/18 13:37 POC ABG Total CO2 20 (23-27mmol/L) 12/20/18 13:37 POC ABG O2 Sat 95 12/20/18 13:37 POC ABG Base Excess -6 ((-2) - (+3)mmol/L) 12/20/18 13:37 FiO2 21 % 12/20/18 13:37 Sodium 139 mmol/L (137-145) 12/19/18 15:10 Potassium 3.8 mmol/L (3.6-5.0) 12/19/18 15:10 Chloride 101.9 mmol/L (98-107) 12/19/18 15:10 Carbon Dioxide 20 mmol/L (22-30) L 12/19/18 15:10 Anion Gap 21 mmol/L 12/19/18 15:10 BUN 17 mg/dL (9-20) 12/19/18 15:10 Creatinine 1.1 mg/dL (0.8-1.5) 12/19/18 15:10 Estimated GFR > 60 ml/min 12/19/18 15:10 BUN/Creatinine Ratio 15 % 12/19/18 15:10 Glucose 138 mg/dL (75-100) H 12/19/18 15:10 Hemoglobin A1c 5.7 % (4-6) 12/20/18 03:49 Lactic Acid 1.50 mmol/L (0.7-2.0) 12/19/18 18:52 Calcium 9.5 mg/dL (8.4-10.2) 12/19/18 15:10 Total Bilirubin 0.90 mg/dL (0.1-1.2) 12/19/18 15:10 AST 24 units/L (5-40) 12/19/18 15:10 ALT 10 units/L (7-56) 12/19/18 15:10 Alkaline Phosphatase 56 units/L (35-129) 12/19/18 15:10 Total Creatine Kinase 288 units/L (55-170) H 12/19/18 15:10 Troponin T < 0.010 ng/mL (0.00-0.029) 12/19/18 15:10 Total Protein 7.5 g/dL (6.3-8.2) 12/19/18 15:10 Albumin 4.0 g/dL (3.9-5) 12/19/18 15:10 Albumin/Globulin Ratio 1.1 % 12/19/18 15:10 Urine Color Yellow (Yellow) 12/19/18 17:39 Urine Turbidity Clear (Clear) 12/19/18 17:39 Urine pH 5.0 (5.0-7.0) 12/19/18 17:39 Ur Specific [place] 1.018 (1.003-1.030) 12/19/18 17:39 Urine Protein 100 mg/dl mg/dL (Negative) 12/19/18 17:39 Urine Glucose (UA) Neg mg/dL (Negative) 12/19/18 17:39 Urine Ketones Neg mg/dL (Negative) 12/19/18 17:39 Urine Blood Sm (Negative) 12/19/18 17:39 Urine Nitrite Neg (Negative) 12/19/18 17:39 Urine Bilirubin Neg (Negative) 12/19/18 17:39 Urine Urobilinogen < 2.0 mg/dL (<2.0) 12/19/18 17:39 Ur Leukocyte Esterase Neg (Negative) 12/19/18 17:39 Urine WBC (Auto) 6.0 /HPF (0.0-6.0) 12/19/18 17:39 Urine RBC (Auto) 6.0 /HPF (0.0-6.0) 12/19/18 17:39 U Epithel Cells (Auto) < 1.0 /HPF (0-13.0) 12/19/18 17:39 Urine Mucus 1+ /HPF 12/19/18 17:39 Influenza A (Rapid) Negative (Negative) 12/19/18 15:44 Influenza B (Rapid) Negative (Negative) 12/19/18 15:44 Blood Type O POSITIVE 12/19/18 18:52 Antibody Screen Negative 12/19/18 18:52
[2018-12-20] MEDS: ZITHROMAX 500 MG in NACL 0.9% 250ML 250 ML IV SCH (16:45)
[2018-12-20] MEDS ORDERED: LOVENOX SUB-Q SCH (22:00)
[2018-12-21] MEDS: SOLU-Medrol IV SCH ×2 (05:14→15:05)
[2018-12-21 06:13] VITALS: BP 120/69
[2018-12-21 06:37] LABS: Hematocrit 35.8 % (35.5-45.6); Hemoglobin 11.4 gm/dl (11.8-15.2); Mean Corpuscular HGB Conc 32 % (32-34); Mean Corpuscular Volume 79 fl (84-94); Platelet Count 171 K/mm3 (140-440); Red Blood Count 4.55 M/mm3 (3.65-5.03); Red Cell Distribution Width 16.9 % (13.2-15.2)
[2018-12-21 07:44] LABS: Alanine Aminotransferase 23 units/L (7-56); Albumin 3.3 g/dL (3.9-5); BUN/Creatinine Ratio 17; Blood Urea Nitrogen 17 mg/dL (9-20); Calcium 8.7 mg/dL (8.4-10.2); Hemolysis Index 5
[2018-12-21 09:02] LABS: Band Neutrophils # (Manual) 0.1 K/mm3; Basophils % (Manual) 0 % (0.0-1.8); Eosinophils % (Manual) 0 % (0.0-4.3); Total Cells Counted 100
[2018-12-21 09:04] LABS: Burr Cells Few; Platelet Estimate Consistent w Auto
[2018-12-21] MEDS: DUONEB *Not for PRN Use IH SCH ×3 (09:23→18:38)
--- NOTE | 2018-12-21 10:24 | Discharge Summary ---
Providers - Providers Date of Admission: 12/19/18 18:53 Attending physician: SHREE GARVIN MD 12/20/18 03:02 Consult to Physician [CONS] Routine Comment: Consulting Provider: ERIK BACA Physician Instructions: Reason For Exam: PNA [facility] Reason for admission: Pneumonia, respiratory failure Condition: Stable Pertinent studies: CXR IMPRESSION: 1. Appearance areas of pulmonary consolidation in the right midlung field and lung bases bilaterally. Infectious and noninfectious etiologies need to be considered. 2. Possible small right pleural fluid collection. 3. Enlarged cardiac silhouette with dual-lead AICD and evidence of pulmonary venous c ongestion. 4. Prominence of the jenny bilaterally. This may represent prominent vascular structures. However, adenopathy cannot entirely be excluded. Comparison with previous chest x-ray or CT chest would be helpful for further evaluation. Chest CT CONCLUSION: No acute chest CT abnormality or lymphadenopathy with various other findings as at the imaged lung bases and included upper abdomen, including cholelithiasis and mild cardiomegaly, amongst others, as described. Hospital course: 68-year-old male with a past medical history of asthma, colon cancer (finished chemotherapy in October 2018), hypertension, previous appendectomy, and pacemaker placement presents to the hospital complaining of fever and chills that started 2 hours prior to arrival. Patient does complain of frontal headache. Patient states he did receive his flu shot. He denies cough, chest pain, shortness of breath, abdominal pain, dysuria, or sore throat. He does complain of some nausea without vomiting. Hand Worker is Dr. Gomes CXR showed bilateral pneumonia. patient was admitted to the floor and was treated appropriately for bilateral pneumonia and patient showed improvement. Fever subsided, no SOB or other complaints. patient was hemodynamically stable and discharged home with PO antibiotics. Disposition: -01 TO HOME OR SELFCARE Time spent for discharge: 32 minutes - Discharge Diagnoses (1) AICD (automatic cardioverter/defibrillator) present Status: Chronic (2) Fever Status: Acute (3) Pneumonia Status: Acute Qualifiers: Laterality: bilateral (4) Sepsis Status: Acute Core Measure Documentation - Palliative Care Palliative Care/ Comfort Measures: Not Applicable - Core Measures Any of the following diagnoses?: none Exam - Physical Exam Narrative exam: Not in cardiopulmonary distress. The patient appeared well nourished and normally developed. Vital signs as documented. Head exam is unremarkable. No scleral icterus . Neck is without jugular venous distension, thyromegaly, or carotid bruits. Lungs are clear to auscultation. Cardiac exam reveals regular rate and Rhythm. First and second heart sounds normal. No murmurs, rubs or gallops. Abdominal exam reveals normal bowel sounds, no masses, no organomegaly and no aortic enlargement. Extremities are nonedematous and both femoral and pedal pulses are normal. MEAL ROOM HAND: Alert and oriented 3. No focal weakness. - Constitutional Vitals: Temp Pulse Resp BP Pulse Ox 98.3 F 96 H 20 120/69 96 12/21/18 04:57 12/21/18 09:33 12/21/18 09:33 12/21/18 04:57 12/21/18 04:57 Plan Activity: no restrictions Weight Bearing Status: Full Weight Bearing Diet: low salt Follow up with: LIMA CARDOZO MD [Primary Care Provider] - 7 Days Prescriptions: Azithromycin 250 mg PO DAILY #3 tablet cephALEXin [Keflex] 500 mg PO Q6HR #20 capsule
[2018-12-21] MEDS: PEPCID PO SCH (10:45)
[2018-12-21] MEDS: SODIUM CHLORIDE FLUSH SYRINGE 10 ML IV SCH (10:55)
[2018-12-21] MEDS: ZITHROMAX 500 MG in NACL 0.9% 250ML 250 ML IV SCH (10:55)
[2018-12-21] MEDS: ROCEPHIN/NS 2 GM/100 ML 2 GM/100 ML BAG IV SCH (11:30)
--- NOTE | 2018-12-21 19:48 | Progress Note ---
Assessment and Plan - Patient Problems (1) Pneumonia Status: Acute Qualifiers: Laterality: bilateral (2) Sepsis Status: Acute (3) AICD (automatic cardioverter/defibrillator) present Status: Chronic Subjective Date of service: 12/21/18 Interval history: Patient discharged by the time I came to see the patient. Objective Vital Signs - 12hr 12/21/18 12/21/18 12/21/18 09:23 09:33 10:00 Pulse Rate Pulse Rate [ 64 96 H Anterior Bilateral Throughout] Respiratory 22 Rate Respiratory 20 20 Rate [Anterior Bilateral Throughout] O2 Sat by Pulse 97 Oximetry 12/21/18 12/21/18 12/21/18 13:00 13:41 13:47 Pulse Rate 82 Pulse Rate [ 83 84 Anterior Bilateral Throughout] Respiratory Rate Respiratory 20 19 Rate [Anterior Bilateral Throughout] O2 Sat by Pulse Oximetry 12/21/18 12/21/18 18:35 18:45 Pulse Rate Pulse Rate [ 78 98 H Anterior Bilateral Throughout] Respiratory Rate Respiratory 17 20 Rate [Anterior Bilateral Throughout] O2 Sat by Pulse Oximetry CBC and BMP: 12/21/18 04:33 12/21/18 04:33 ABG, PT/INR, D-dimer: ABG 12/20/18 13:37 Abnormal lab findings: Abnormal Labs 12/19/18 12/19/18 12/19/18 15:10 15:10 15:10 WBC 11.1 H RBC 5.38 H Hgb MCV 78 L MCH 25 L RDW 17.0 H Lymph % (Auto) 6.3 L Lymph # 0.7 L Seg Neutrophils % 87.9 H Seg Neuts % (Manual) Lymphocytes % (Manual) Seg Neutrophils # 9.7 H Seg Neutrophils # Man Lymphocytes # (Manual) POC ABG pCO2 POC ABG pO2 Chloride Carbon Dioxide 20 L Glucose 138 H Lactic Acid 3.40 H* Total Creatine Kinase 288 H Albumin 12/19/18 12/19/18 12/20/18 16:01 17:07 13:37 WBC RBC Hgb MCV MCH RDW Lymph % (Auto) Lymph # Seg Neutrophils % Seg Neuts % (Manual) Lymphocytes % (Manual) Seg Neutrophils # Seg Neutrophils # Man Lymphocytes # (Manual) POC ABG pCO2 34.1 L POC ABG pO2 78 L Chloride Carbon Dioxide Glucose Lactic Acid 3.00 H* 2.20 H* Total Creatine Kinase Albumin 12/21/18 12/21/18 04:33 04:33 WBC RBC Hgb 11.4 L MCV 79 L MCH 25 L RDW 16.9 H Lymph % (Auto) Lymph # Seg Neutrophils % Seg Neuts % (Manual) 98.0 H Lymphocytes % (Manual) 0 L Seg Neutrophils # Seg Neutrophils # Man 7.9 H Lymphocytes # (Manual) 0.0 L POC ABG pCO2 POC ABG pO2 Chloride 108.3 H Carbon Dioxide 19 L Glucose 179 H Lactic Acid Total Creatine Kinase Albumin 3.3 L
== END 2018-12-21 19:15 | disposition home or self-care (01) | DRG 871 ==
LOC: ED 14:46 → 4A 18:53
PROVIDERS: ADMIT Internal Medicine; ATTEND Internal Medicine
PROC: 4A033R1 Measurement of Arterial Saturation, Peripheral, Percutaneous Approach (ICD-10-PCS; principal; 2018-12-20)
DX: A41.9 Sepsis, unspecified organism (principal); J18.1 Lobar pneumonia, unspecified organism; I10 Essential (primary) hypertension; Z95.810 Presence of automatic (implantable) cardiac defibrillator; Z85.038 Personal history of other malignant neoplasm of large intestine; Z90.49 Acquired absence of other specified parts of digestive tract
CPT/HCPCS: 36415; 36600; 71045; 71260; 80053; 81001; 82140; 82550; 82803; 83036; 84484; 85007; 85025; 85730; 86850; 86900; 86901; 87040; 87400; 93005; 93010; 94640; 96365; 96375; 99285; G0378; J0456; J0696; J1650; J1885; J2405; J2920; J7030; J7050; Q9967

== ENCOUNTER 2022-04-10 13:14 | Emergency (ER) | payer MEDICARE ==
[2022-04-10 13:49] VITALS: BP 145/82
--- NOTE | 2022-04-10 15:10 | Emergency Department Report ---
ED ENT HPI - General Chief complaint: Earache Stated complaint: COTTON BALL STUCK IN LEFT EAR Time Seen by Provider: 04/10/22 14:14 Source: patient Mode of arrival: Ambulatory Limitations: Language Barrier - History of Present Illness Initial comments: 71-year-old male presents to the emergency department for evaluation of foreign body in left ear. He states that he was using a cotton ball to clean his left ear and was unable to get the entire thing out. He states that both him and some of his family members attempted to remove cottonball without success, so he decided to follow-up in the emergency department for further evaluation and management. He denies pain to the ear or fever. MD complaint: foreign body -: Sudden, hour(s) Location: L ear Severity scale (0 -10): 0 Associated Symptoms: denies: fever, tinnitus, hearing loss, discharge from ear - Related Data Previous Rx's Medication Instructions Recorded Last Taken Type Ofloxacin 0.3% [Floxin 0.3% Otic] 10 ml OT TID #1 bottle 05/12/15 Unknown Rx Acetaminophen [Acetaminophen TAB] 500 mg PO Q6HR PRN #30 tablet 10/24/17 Unknown Rx Bacitracin Zinc Oint [Antibiotic 1 applicatio TP BID #1 tube 10/24/17 Unknown Rx Oint] Azithromycin 250 mg PO DAILY #3 tablet 12/21/18 Unknown Rx cephALEXin [Keflex] 500 mg PO Q6HR #20 capsule 12/21/18 Unknown Rx Allergies Allergy/AdvReac Type Severity Reaction Status Date / Time No Known Allergies Allergy Verified 12/19/18 14:48 ED Dental HPI - General Chief complaint: Earache Stated complaint: COTTON BALL STUCK IN LEFT EAR Time Seen by Provider: 04/10/22 14:14 Source: patient Mode of arrival: Ambulatory Limitations: Language Barrier - Related Data Previous Rx's Medication Instructions Recorded Last Taken Type Ofloxacin 0.3% [Floxin 0.3% Otic] 10 ml OT TID #1 bottle 05/12/15 Unknown Rx Acetaminophen [Acetaminophen TAB] 500 mg PO Q6HR PRN #30 tablet 10/24/17 Unknown Rx Bacitracin Zinc Oint [Antibiotic 1 applicatio TP BID #1 tube 10/24/17 Unknown Rx Oint] Azithromycin 250 mg PO DAILY #3 tablet 12/21/18 Unknown Rx cephALEXin [Keflex] 500 mg PO Q6HR #20 capsule 12/21/18 Unknown Rx Allergies Allergy/AdvReac Type Severity Reaction Status Date / Time No Known Allergies Allergy Verified 12/19/18 14:48 ED Review of Systems ROS: Stated complaint: COTTON BALL STUCK IN LEFT EAR Other details as noted in HPI Comment: All other systems reviewed and negative Constitutional: denies: chills, fever Eyes: denies: vision change ENT: denies: ear pain, hearing loss, congestion Respiratory: denies: shortness of breath Cardiovascular: denies: chest pain, palpitations Gastrointestinal: denies: abdominal pain, nausea, vomiting Musculoskeletal: denies: back pain Skin: denies: rash, lesions Neurological: denies: headache, weakness ED Past Medical Hx - Past Medical History Previous Medical History?: Yes Hx Hypertension: Yes Hx CVA: No Hx Heart Attack/AMI: No Hx Diabetes: No Hx Deep Vein Thrombosis: No Hx Liver Disease: No Hx Renal Disease: No Hx Kidney Stones: No Hx Asthma: Yes Additional medical history: FINISHED CHEMO IN OCT - Surgical History Past Surgical History?: Yes Hx Pacemaker: Yes Hx Appendectomy: Yes Additional Surgical History: RIGHT ANKLE - Social History Smoking Status: Never Smoker - Medications Home Medications: Home Medications Medication Instructions Recorded Confirmed Last Taken Type Ofloxacin 0.3% [Floxin 0.3% Otic] 10 ml OT TID #1 bottle 05/12/15 Unknown Rx Acetaminophen [Acetaminophen TAB] 500 mg PO Q6HR PRN #30 tablet 10/24/17 Unknown Rx Bacitracin Zinc Oint [Antibiotic 1 applicatio TP BID #1 tube 10/24/17 Unknown Rx Oint] Azithromycin 250 mg PO DAILY #3 tablet 12/21/18 Unknown Rx cephALEXin [Keflex] 500 mg PO Q6HR #20 capsule 12/21/18 Unknown Rx ED Physical Exam - General Limitations: Language Barrier General appearance: alert, in no apparent distress - Head Head exam: Present: atraumatic, normocephalic - Eye Eye exam: Present: normal appearance. Absent: conjunctival injection, periorbital tenderness - Expanded ENT Exam Expanded Ear exam: Present: normal external inspection TM/Canal exam: Foreign Body: Left TM - Neck Neck exam: Present: normal inspection. Absent: lymphadenopathy - Respiratory Respiratory exam: Absent: respiratory distress - Cardiovascular Cardiovascular Exam: Present: regular rate - GI/Abdominal GI/Abdominal exam: Absent: distended - Extremities Exam Extremities exam: Present: normal inspection - Back Exam Back exam: Present: normal inspection - Neurological Exam Neurological exam: Present: alert, oriented X3, normal gait - Psychiatric Psychiatric exam: Present: normal affect, normal mood - Skin Skin exam: Present: warm, dry, intact, normal color ED Course Vital Signs 04/10/22 04/10/22 13:47 15:19 Temperature 98 F Pulse Rate 74 74 Respiratory 20 20 Rate Blood Pressure 145/82 145/82 [Right] O2 Sat by Pulse 97 97 Oximetry - Foreign Body Removal Ear Location: ear canal (L) Foreign Body Suspected: other (Cottonball) Foreign Body Removed: yes Foreign Body Removal Technique: forceps (Alligator forceps) Tympanic Membrane Intact: Yes Patient Tolerated Procedure: well, no complications Complications: none Additional Comments: Tympanic membrane visualized after foreign body removal and noted to be intact. No erythema edema or drainage noted to canal. ED Medical Decision Making - Medical Decision Making 71-year-old male presents to the emergency department for evaluation of foreign body in left ear. He states that he was using a cotton ball to clean his left ear and was unable to get the entire thing out. He states that both him and some of his family members attempted to remove cottonball without success, so he decided to follow-up in the emergency department for further evaluation and management. He denies pain to the ear or fever. Foreign body removed from left ear canal per my procedure note. Patient tolerated well. He is advised to follow-up with his primary care provider or return to the emergency department as needed. He verbalized understanding of and agreement with plan of care. Critical care attestation.: If time is entered above; I have spent that time in minutes in the direct care of this critically ill patient, excluding procedure time. ED Disposition Clinical Impression: Acute foreign body of left ear canal Qualifiers: Encounter type: initial encounter Qualified Code(s): T16.2XXA - Foreign body in left ear, initial encounter Disposition: HOME / SELF CARE / HOMELESS Is pt being admited?: No Does the pt Need Aspirin: No Condition: Stable Instructions: Ear Foreign Body, [id number] Additional Instructions: Follow-up with primary care provider as needed. Return to the emergency department as needed. Referrals: BRANDON KEITH MD [Staff Physician] - 3-5 Days Time of Disposition: 15:10
== END 2022-04-10 15:20 | disposition home or self-care (01) ==
LOC: ED 13:14
DX: T16.2XXA Foreign body in left ear, initial encounter (principal); I10 Essential (primary) hypertension; J45.909 Unspecified asthma, uncomplicated; Z98.890 Other specified postprocedural states; X58.XXXA Exposure to other specified factors, initial encounter; Y93.89 Activity, other specified; Y92.89 Other specified places as the place of occurrence of the external cause; Y99.8 Other external cause status
CPT/HCPCS: 99282